=== PATIENT | female | born 1970 | race Caucasian/White ===

== ENCOUNTER 2016-10-20 19:27 | Emergency (ER) | payer MEDICAID, OTHER ==
[~2016-10-20] VITALS: Ht 162.6 cm; Wt 78.0 kg
[2016-10-20 19:33] VITALS: Ht 162.6 cm; Wt 78.0 kg
--- NOTE | 2016-10-20 22:30 | ERD ---
ER Documentation Chief Complaint Date/Time DATE: 10/20/16 TIME: 22:27 Chief Complaint left foot. ankle pain, sweeling x 4 days, denies injury HPI 46-year-old female presented to emergency department for complaints of left ankle left foot swelling for 4 days. Patient denies any injury on affected area. Patient works as a house cleaning, has been standing for prolonged periods. Patient denies any direct trauma in affected area. Patient denies any numbness or tingling. Patient complains of pain throbbing pain, 4/10 scale, intermittent, only has pain with movement. Patient denies any redness. Patient states that the swelling went up to the left calf area afterwards. Patient does not have any redness. She did not take any medications to help with symptoms. ROS All systems reviewed and are negative except as per history of present illness. Medications Home Meds Reported Medications [none] Unknown Strength No Conflict Check 10/20/16 Allergies Allergies: Coded Allergies: No Known Allergy (Unverified , 10/20/16) PMhx/Soc Medical and Surgical Hx: pt denies Medical Hx, pt denies Surgical Hx Hx Alcohol Use: No Hx Substance Use: No Hx Tobacco Use: No Smoking Status: Never smoker FmHx Family History: No coronary disease, No diabetes, No other Physical Exam Vitals Vital Signs Date Time Temp Pulse Resp B/P Pulse Ox O2 Delivery O2 Flow Rate FiO2 10/20/16 19:33 98.5 83 20 169/89 99 Physical Exam GENERAL: The patient is well developed and appropriate for usual state of health, in no apparent distress. CHEST: Clear to auscultation bilaterally. There are no rales, wheezes or rhonchi. HEART: Regular rate and rhythm. No murmurs, clicks, rubs or gallops. No S3 or S4. ABDOMEN: Soft, nontender and nondistended. Good bowel sounds. No rebound or guarding. No gross peritonitis. No gross organomegaly or masses. No Munguia sign or McBurney point tenderness. BACK: No midline or flank tenderness. EXTREMITIES: Mild swelling noted in the left ankle, no swelling noted of the left calf area, no tenderness on palpation on the left cough, no Homans sign. No tenderness on palpation on the medial malleolus of the left ankle. No redness noted. No deformity noted. Patient able to ambulate on it. Equal pulses bilaterally. Full range of motion of other joints of the body. Grossly neurovascularly intact. NEURO: Alert and oriented. Cranial nerves 2-12 intact. Motor strength in all 4 extremities with 5/5 strength. Sensation grossly intact. Normal speech and gait. SKIN: There is no apparent rash or petechia. The skin is warm and dry. HEMATOLOGIC AND LYMPHATIC: There is no evidence of excessive bruising or lymphedema. No gross cervical, axillary, or inguinal lymphadenopathy. Results 24 hrs PROCEDURE: XR Left Ankle CLINICAL INDICATION: Pain, swelling TECHNIQUE: Standard 3 view radiographs were submitted. COMPARISON: None FINDINGS: Osseous structures: Well mineralized and intact with no fracture or destructive process identified. Joint spaces: The ankle mortise is well maintained. Soft tissues: There is soft tissue swelling about the lateral malleolus compatible with a sprain. A small calcification is seen in the soft tissues medial to the distal tibial shaft which may be a phlebolith. IMPRESSION: 1. Left ankle sprain. 2. Small calcification seen in the soft tissues medial to the distal left tibial metadiaphysis, possibly a phlebolith. Physician Lenny Date Time Electronically viewed and signed by Physician Lenny on 10/20/2016 22:43 RH/ CC: PAULA SHEPHERD NP PROCEDURE: US left lower extremity venous Doppler CLINICAL INDICATION: Swelling TECHNIQUE: Multiple sonographic images of the left lower extremity deep venous system was obtained utilizing grayscale, color-flow, compressive sonography and Doppler imaging with augmentation. COMPARISON: No pertinent prior examinations were submitted for comparison. FINDINGS: There is normal compressibility and flow within the left common femoral, superficial femoral, popliteal, and calf veins. IMPRESSION: No sonographic evidence for left deep venous thrombosis. RPTAT: HIKT .Adriano Urbano MD, Date Time Electronically viewed and signed by .Adriano Urbano MD, on 10/20/2016 22:48 .T/ CC: PAULA SHEPHERD NP After receiving patients xray report, an Holden wrap was applied on the patients left ankle. After application of the Holden wrap, patient has intact sensation and circulation on distal area of the affected joint. Patient does not complain of numbness or tingling after application of the Holden wrap. Patient tolerated procedure well. Procedures/MDM Medical Decision Making: Patient's pain is most likely consistent with a contusion or a sprain. There is no suspicion for neurovascular compromise. Patient has intact sensation and circulation of the affected extremity. There is low suspicion for septic arthritis. Patient does not have any fever. Radiology exams of the affected area does not show any fracture or dislocation. Disposition: Home. Patient is given prescription for ibuprofen for pain. Patient was advised to elevate the affected area and apply ice on affected area. Patient was advised that if symptoms are worse, numbness, tingling, high fever, unable to move joint, worsening symptoms, to return to emergency department immediately. Otherwise, patient is advised to follow up with the primary care doctor in 5-7 days for reevaluation of symptoms. Departure Diagnosis: Primary Impression: Ankle pain Laterality: left Chronicity: acute Qualified Code: M25.572 - Acute left ankle pain Condition: Stable Patient Instructions: Sprain, Ankle, With X-Ray Additional Instructions: Patient is given prescription for ibuprofen for pain. Patient was advised to elevate the affected area and apply ice on affected area. Patient was advised that if symptoms are worse, numbness, tingling, high fever, unable to move joint , worsening symptoms, to return to emergency department immediately. Otherwise, patient is advised to follow up with the primary care doctor in 5-7 days for reevaluation of symptoms. PAULA SHEPHERD NP Oct 20, 2016 22:29
--- NOTE | 2016-10-20 22:43 | RADRPT ---
PROCEDURE: XR Left Ankle CLINICAL INDICATION: Pain, swelling TECHNIQUE: Standard 3 view radiographs were submitted. COMPARISON: None FINDINGS: Osseous structures: Well mineralized and intact with no fracture or destructive process identified. Joint spaces: The ankle mortise is well maintained. Soft tissues: There is soft tissue swelling about the lateral malleolus compatible with a sprain. A small calcification is seen in the soft tissues medial to the distal tibial shaft which may be a ph lebolith. IMPRESSION: 1. Left ankle sprain. 2. Small calcification seen in the soft tissues medial to the distal left tibial metadiaphysis, pos sibly a phlebolith. Physician Lenny Date Time Electronically viewed and signed by Physician Lenny on 10/20/2016 22:43 /
--- NOTE | 2016-10-20 22:49 | RADRPT ---
PROCEDURE: US left lower extremity venous Doppler CLINICAL INDICATION: Swelling TECHNIQUE: Multiple sonographic images of the left lower extremity deep venous system was obtained utilizing grayscale, color-flow, compressive sonography and Doppler imaging with augmentation. COMPARISON: No pertinent prior examinations were submitted for comparison. FINDINGS: There is normal compressibility and flow within the left common femoral, superficial femoral, poplit eal, and calf veins. IMPRESSION: No sonographic evidence for left deep venous thrombosis. RPTAT: HIKT .Adriano Urbano MD, MD Date Time Electronically viewed and signed by .Adriano Urbano MD, on 10/20/2016 22:48 .T/
[2016-10-20] MEDS ORDERED: IBUP-1542 PO (23:00)
== END 2016-10-21 00:19 | disposition home or self-care (01) ==
LOC: FTE 19:27
DX: M25.572 Pain in left ankle and joints of left foot (principal)
CPT/HCPCS: 73610; 93971; Z7502

== ENCOUNTER 2016-11-04 13:59 | Emergency (ER) | payer MEDICAID ==
[~2016-11-04] VITALS: Ht 162.6 cm; Wt 78.0 kg
[~2016-11-04 13:59] MED LIST: IBUP-1542 PO
[2016-11-04 14:03] VITALS: Ht 162.6 cm; Wt 78.0 kg
--- NOTE | 2016-11-04 15:27 | RADRPT ---
PROCEDURE: US Lower extremity Venous. CLINICAL INDICATION: Left leg edema, pain TECHNIQUE: Multiple sonographic images of the left lower extremity deep venous system was obtained utilizing grayscale, color-flow, compressive sonography and doppler imaging with augmentation. The images were reviewed on a PACS workstation. COMPARISON: 10/20/16 FINDINGS: There is normal compressibility and flow within the left common femoral, femoral, posterior tibial, peroneal and popliteal veins. RPTAT: AA IMPRESSION: No sonographic evidence for deep venous thrombosis. .Christopher Elizabeth MD, MD Date Time Electronically viewed and signed by .Christopher Elizabeth MD, on 11/04/2016 15:26 .S/
[2016-11-04] MEDS ORDERED: IBUP-1542 PO (15:44)
--- NOTE | 2016-11-04 15:53 | ERD ---
ER Documentation Chief Complaint Date/Time DATE: 11/04/16 TIME: 15:49 Chief Complaint lt leg swelling x 2 weeks , denies any trauma , no sob HPI This is a 46-year-old female presenting to the emergency department complaining of left lower calf and ankle pain and swelling for the past 2 weeks. 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 Patient states the pain is moderate in severity and has not improved in the past 2 weeks. She denies taking any medications for this. She states that she is able to ambulate but has pain ROS All systems reviewed and are negative except as per history of present illness. Medications Home Meds Active Scripts Ibuprofen* (Ibuprofen*) 600 Mg Tablet, 600 MG PO Q6H, #30 TAB Prov:MILY MARTÍNEZ PA-C 11/04/16 Ibuprofen* (Motrin*) 600 Mg Tab, 600 MG PO Q6H Y for PAIN AND OR ELEVATED TEMP, #30 TAB Prov:PAULA SHEPHERD NP 10/20/16 Reported Medications [none] Unknown Strength No Conflict Check 10/20/16 Allergies Allergies: Coded Allergies: No Known Allergy (Unverified , 11/04/16) PMhx/Soc Medical and Surgical Hx: pt denies Medical Hx, pt denies Surgical Hx History of Surgery: No Anesthesia Reaction: No Hx Neurological Disorder: No Hx Respiratory Disorders: No Hx Cardiac Disorders: No Hx Psychiatric Problems: No Hx Miscellaneous Medical Probl: No Hx Alcohol Use: No Hx Substance Use: No Hx Tobacco Use: No Smoking Status: Never smoker Physical Exam Vitals Vital Signs Date Time Temp Pulse Resp B/P Pulse Ox O2 Delivery O2 Flow Rate FiO2 11/04/16 14:03 98.2 92 18 135/78 100 Physical Exam General: WD/WN, in no apparent distress, non-toxic appearing HENT: NC/AT Eyes: Conjunctiva normal Neck: Supple Pulm: Clear to auscultation, normal labored breathing; no wheezing/rales/ rhonchi heard CV: Good capillary refill GI: Non-distended, no guarding Back: No masses Ext: Left ankle pain and mild swelling, no erythema noted, patient is ambulating. Full passive range of motion restricted active range of motion Neuro: Moves on all fours Skin: intact Psych: Normal mood Procedures/MDM This is a 46-year-old female presenting to the emergency department complaining of left lower ankle and calf pain and swelling for the past 2 weeks which is likely due to an ankle sprain. There is no evidence of any fracture, dislocation. Low suspicion for compartment syndrome. No evidence of DVT. Patient has been evaluated at this facility on November 19 and received a x-ray of the left ankle and radiologist stated: left ankle sprain; small calcification seen in the soft tissues medial to the distal left tibial metadiaphysis, possibly a phlebolith. A repeat venous ultrasound was done today and it did not show any evidence of deep vein thrombosis. An Holden bandage was placed in the ED. Patient was given a prescription for ibuprofen. I have discussed RICE instructions. Discussed to follow-up with primary care physician, discussed return to the ER for any worsening signs or symptoms. Patient understands and agrees with this plan. She is neurovascular intact in hematoma stable for discharge. Departure Diagnosis: Primary Impression: Ankle sprain Condition: Stable Patient Instructions: Treating Ankle Sprains, Self-Care for Strains and Sprains Referrals: [facility] () Usted se swartz hecho un examen mdico de control que le indica que no est en orly condicin que requiera tratamiento urgente en el Departamento de Emergencia. Un estudio ms profundo y el tratamiento de dominguez condicin pueden esperar sin ningn riesgo hasta que usted sea atendida/o en el consultorio de dominguez mdico o orly cl semaj. Es responsabilidad suya arreglar orly kirk para el seguimiento del luther. MANEJO DE CONDICIONES NO URGENTES EN EL FUTURO 1) Si usted tiene un mdico de atencin primaria: Usted debera llamar a dominguez mdico de atencin primaria antes de venir al departamento de emergencia. Despus de las horas de consultorio, dominguez doctor o dominguez asociado/a est disponible por telfono. El mdico o enfermero de isabel en el servicio telefnico puede asesorarle por zandra medio para atender el problema, o luther contrario se puede programar orly kirk. 2) Si usted no tiene un mdico de atencin primaria: Llame al mdico o clnica de referencia que aparece abajo trent las horas de consultorio para hacer orly kirk para que le vean. CLINICAS: [facility] [phone] [facility] [phone] [facility] [phone] [place] [phone] [place] [phone] [place] [phone] Additional Instructions: Visite a dominguez mdico maana para un EXAMEN.Regrese a estas instalaciones si no se mejora kellie esperbamos o kellie le dijimos. [place] toda la medicina enrique y kellie se le indic. Regrese a estas instalaciones si no se mejora kellie esperbamos o kellie le dijimos. MILY MARTÍNEZ PA-C Nov 04, 2016 15:53
[2016-11-04 17:19] VITALS: BP 117/68; PULSE 70; RESP 18; TEMP 98.5
== END 2016-11-04 17:21 | disposition home or self-care (01) ==
LOC: FTE 13:59
DX: S93.402A Sprain of unspecified ligament of left ankle, initial encounter (principal); X58.XXXA Exposure to other specified factors, initial encounter; Y92.9 Unspecified place or not applicable
CPT/HCPCS: 93971; Z7502

== ENCOUNTER 2016-11-30 10:01 | Emergency (ER) | payer SELFPAY ==
[~2016-11-30] VITALS: Ht 162.6 cm; Wt 76.0 kg
[2016-11-30 10:04] VITALS: Ht 162.6 cm; Wt 76.0 kg
[2016-11-30] MEDS ORDERED: ONDANSETRON (ODT) 4 MG TAB ODT STA (10:33)
[2016-11-30 10:45] LABS: URINE BLOOD (Dip) POC 1+ (NEGATIVE)
[2016-11-30] MEDS ORDERED: MECLIZINE 12.5 MG TAB PO ONE (11:00)
--- NOTE | 2016-11-30 11:01 | ERA ---
ER Documentation Chief Complaint Date/Time DATE: 11/30/16 TIME: 10:59 Chief Complaint complains of vomiting x 2 days HPI 46-year-old female. Bruneian speaking. The patient presents with multiple symptoms for approximately 48 hours that include room spinning sensation that is worse when rolling over in bed and with head movements. She describes associated nonbloody nonbilious emesis. She also describes paresthesias to her entire body. She is concerned because a family member has diabetes and is worried this may be similar in presentation. She denies any polyuria polydipsia polyphagia. She denies any headache fevers or chills, no slurred speech or ataxia. ROS All systems reviewed and are negative except as per history of present illness. Medications Home Meds Active Scripts Ondansetron (Ondansetron Odt) 4 Mg Tab.rapdis, 4 MG PO Q6H Y for NAUSEA AND/OR VOMITING, #30 TAB Prov:DANTE KEENAN MD 11/30/16 Meclizine Hcl* (Meclizine Hcl*) 25 Mg Tablet, 25 MG PO Q8H Y for DIZZINESS, #30 TAB Prov:DANTE KEENAN MD 11/30/16 Ibuprofen* (Ibuprofen*) 600 Mg Tablet, 600 MG PO Q6H, #30 TAB Prov:MILY MARTÍNEZ PA-C 11/04/16 Ibuprofen* (Motrin*) 600 Mg Tab, 600 MG PO Q6H Y for PAIN AND OR ELEVATED TEMP, #30 TAB Prov:PAULA SHEPHERD NP 10/20/16 Reported Medications [none] Unknown Strength No Conflict Check 10/20/16 Allergies Allergies: Coded Allergies: No Known Allergy (Unverified , 11/30/16) PMhx/Soc Medical and Surgical Hx: pt denies Medical Hx, pt denies Surgical Hx History of Surgery: No Anesthesia Reaction: No Hx Neurological Disorder: No Hx Respiratory Disorders: No Hx Cardiac Disorders: No Hx Psychiatric Problems: No Hx Miscellaneous Medical Probl: No Hx Alcohol Use: No Hx Substance Use: No Hx Tobacco Use: No Smoking Status: Never smoker Physical Exam Vitals Vital Signs Date Time Temp Pulse Resp B/P Pulse Ox O2 Delivery O2 Flow Rate FiO2 11/30/16 10:04 97.6 89 20 125/78 98 Physical Exam General: Well developed, well nourished, no acute distress Head: Normocephalic, atraumatic. Eyes: Pupils equally reactive, EOM intact ENT: Moist mucous membranes Neck: Supple, no lymphadenopathy Respiratory: Lungs clear bilaterally, no distress Cardiovascular: RRR, no murmurs, rubs, or gallops Abdominal: Soft, non-tender, non-distended, no peritoneal signs : Deferred MSK: No edema, no unilateral swelling, 5/5 strength Neurologic: Alert and oriented, moving all extremities, normal speech, no focal weakness, no cerebellar signs, steady gait Skin: No rash Psych: Normal mood Results 24 hrs Laboratory Tests Test 11/30/16 10:51 11/30/16 10:52 Bedside Glucose 102mg/dL Bedside Urine pH (LAB) 5.5 Bedside Urine Protein (LAB) Negative Bedside Urine Glucose (UA) Negative Bedside Urine Ketones (LAB) Negative Bedside Urine Blood 1+ Bedside Urine Nitrite (LAB) Negative Bedside Urine Leukocyte Esterase (L 1+ Current Medications Medications (Trade) Dose Ordered Sig/Sandra Route PRN Reason Start Time Stop Time Status Last Admin Dose Admin Meclizine HCl (Antivert) 25 mg ONCE ONCE PO 11/30/16 11:00 11/30/16 11:01 DC 11/30/16 10:58 Ondansetron HCl (Zofran Odt) 4 mg ONCE STAT ODT 11/30/16 10:33 11/30/16 10:36 DC 11/30/16 10:58 Procedures/MDM LAB INTERPRETATION: Normal Accu-Chek, urinalysis not consistent with UTI, negative hCG MEDICAL DECISION MAKING: The patient's symptoms and constellation of presentation is most consistent with likely benign positional vertigo. Low clinical concern for diabetes however given family history, urinalysis and Accu-Chek would be reasonable. HCG is appropriate. The patient does not have a headache and she has an otherwise nonfocal neurologic exam. She does not exhibit any signs or symptoms concerning for central vertigo. For these reasons I do not believe the patient requires laboratory testing, EKG or CT of the brain. The patient was provided reassurance. A engine service repairer was used. The patient was advised to follow-up with primary care physician and in the event that symptoms persist for greater than 1 week she should have further laboratory testing and consideration for MRI imaging. ER COURSE: Zofran and meclizine provided. The patient is improved symptoms. Her laboratory testing is reassuring. Outpatient management as documented above was advised. I kept the patient and/or family informed of laboratory and diagnostic imaging results throughout the emergency room course. DISPOSITION PLAN: We discussed follow up with the patient's primary care doctor within 24 to 48 hours as needed. We also discussed return to the emergency room for worsening symptoms or worsening condition. Outpatient referral: None required Discharge Medications: Meclizine, Zofran Departure Diagnosis: Primary Impression: BPV (benign positional vertigo) Qualified Code: H81.10 - BPV (benign positional vertigo), unspecified laterality Condition: DANTE Casanova MD Nov 30, 2016 11:01
[2016-11-30] MEDS ORDERED: ONDA4TAB14 PO (11:12)
[2016-11-30] MEDS ORDERED: MECL-77 PO (11:12)
== END 2016-11-30 11:37 | disposition home or self-care (01) ==
LOC: FTE 10:01
DX: H81.10 Benign paroxysmal vertigo, unspecified ear (principal)
CPT/HCPCS: 81003; 82962; 99283